=== PATIENT | male | born 2000 ===

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

== ENCOUNTER 2019-02-06 02:34 | Emergency (ER) | payer OTHER ==
--- NOTE | 2019-02-06 03:28 | ED ---
GI/ HPI - HPI Summary HPI Summary: This patient is a 18 year old male presenting to [facility] with a chief complaint of diarrhea. He states it came on suddenly and he was unable to make it to the bathroom in time. The patient states he felt like there was bile in the stool and that he has liver problems (masses in the liver) and is concerned about this. He was at urgent care earlier today with dizziness and nausea. He states he is not a diabetic but he had his glucose taken at urgent care and it was 35 g /dl. He states this was the only episode. - History of Current Complaint Chief Complaint: EDNauseaVomitDiarrh Time Seen by Provider: 02/06/19 03:21 Stated Complaint: DIARRHEA PER PT Hx Obtained From: Patient Onset/Duration: Started Hours Ago Pain Intensity: 0 - Allergy/Home Medications Allergies/Adverse Reactions: Allergies Allergy/AdvReac Type Severity Reaction Status Date / Time amoxicillin Allergy Unknown Verified 02/06/19 02:41 Reaction Details Penicillins Allergy Unknown Verified 02/06/19 02:41 Reaction Details Home Medications: Home Medications NK [No Home Medications Reported] 02/06/19 [History Confirmed 02/06/19] PMH/Surg Hx/FS Hx/Imm Hx Endocrine/Hematology History: Denies: Hx Diabetes Sensory History: Denies: Hx Legally Blind, Hx Deafness Opthamlomology History: Denies: Hx Legally Blind - Surgical History Surgery Procedure, Year, and Place: none reported Infectious Disease History: No Infectious Disease History: Denies: Traveled Outside the [place] in Last 30 Days - Family History Known Family History: Positive: Diabetes - Father, Other - stroke in grandmother - Social History Alcohol Use: None Substance Use Type: Reports: None Smoking Status (MU): Never Smoked Tobacco Review of Systems Positive: Diarrhea, Nausea Neurological: Other - Dizziness All Other Systems Reviewed And Are Negative: Yes Physical Exam - Summary Physical Exam Summary: Appearance: Well-appearing, Well-nourished, lying in bed comfortably Skin: Warm, dry, no obvious rash Eyes: sclera anicteric, no conjunctival pallor ENT: mucous membranes moist, pharynx appears normal Neck: Supple, nontender Respiratory: Clear to auscultation, no signs of respiratory distress Cardiovascular: Normal S1, S2. No murmurs. Normal distal pulses in tibial and radial bilaterally. Abdomen: Soft, nontender, normal active bowel sounds present Musculoskeletal: Normal, Strength/ROM Intact Neurological: A&Ox3, awake and alert, mentation is normal, speech is fluent and appropriate Psychiatric: affect is normal, does not appear anxious or depressed Triage Information Reviewed: Yes Vital Signs On Initial Exam: Initial Vitals Temp Pulse Resp BP Pulse Ox 98.6 F 104 20 149/93 98 02/06/19 02:35 02/06/19 02:35 02/06/19 02:35 02/06/19 02:35 02/06/19 02:35 Vital Signs Reviewed: Yes Procedures - Sedation Patient Received Moderate/Deep Sedation with Procedure: No Diagnostics - Vital Signs Vital Signs Temp Pulse Resp BP Pulse Ox 02/06/19 02:35 98.6 F 104 20 149/93 98 - Laboratory Result Diagrams: 02/06/19 03:55 02/06/19 03:50 Lab Statement: Any lab studies that have been ordered have been reviewed, and results considered in the medical decision making process. GIGU Course/Dx - Course Course Of Treatment: This patient is a 18 year old male presenting to [facility] with a chief complaint of diarrhea. Physical exam and labs were unremarkable. He has not experienced any further diarrhea while in the ED. A plan for discharge was discussed with the patient and he was agreeable with this plan. - Diagnoses Provider Diagnoses: Diarrhea Discharge ED - Sign-Out/Discharge Documenting (check all that apply): Patient Departure - Discharge Patient Received Moderate/Deep Sedation with Procedure: No - Discharge Plan Condition: Good Disposition: HOME Patient Education Materials: Acute Diarrhea (ED) Referrals: [facility] [Outside] - 2 Days (if needed) - Billing Disposition and Condition Condition: GOOD Disposition: Home - Attestation Statements Document Initiated by Sharynibe: Yes Documenting Scribe: Vladimir Hansen Provider For Whom Alejandro is Documenting (Include Credential): Wilberto Bailey MD Scribe Attestation: Vladimir Contreras scribed for Wilberto Bailey MD on 02/12/19 at 0414. Scribe Documentation Reviewed: Yes Provider Attestation: The documentation as recorded by the Vladimir ballard accurately reflects the service I personally performed and the decisions made by me, Wilberto Bailey MD Status of Scribe Document: Viewed
[2019-02-06] MEDS ORDERED: NS 0.9% 1000 ML** 2,000 ML IV ONE (03:30)
[2019-02-06 04:04] LABS: ABS Eosinophils 0.1 10^3/ul (0-0.6); ABS Lymphocytes 2.8 10^3/ul (1.0-4.8); ABS Monocytes 0.7 10^3/ul (0-0.8); ABS Neutrophils 4.7 10^3/ul (1.5-7.7); Eosinophil % 1.5 %; Hematocrit 44 % (42-52); Hemoglobin 15.1 g/dL (14.0-18.0); Mean Corpuscular HGB Conc 35 g/dL (31-36); Mean Corpuscular Hemoglobin 29 pg (27-31); Mean Corpuscular Volume 84 fL (80-94); Mean Platelet Volume 8.7 fL (7.4-10.4); Platelet Count 188 10^3/uL (150-450); Red Blood Count 5.22 10^6 /uL (4.18-5.48); Red Cell Distribution Width 14 % (10-15); White Blood Count 8.4 10^3/uL (3.5-10.8)
[2019-02-06 04:19] LABS: Albumin 4.5 g/dL (3.2-5.2); Albumin/Globulin Ratio 1.8 (1-3); BUN/Creatinine Ratio 15.8 (8-20); C Reactive Protein 2.15 mg/L (<8.01); Calcium 9.8 mg/dL (8.6-10.3); EGFR African American 159.9 (>60); EGFR Non-African American 132.1 (>60); Globulin 2.5 g/dL (2-4); Potassium 3.6 mmol/L (3.5-5.0); Total Bilirubin 0.4 mg/dL (0.2-1.0)
[2019-02-06 05:29] VITALS: BP 140/87
== END 2019-02-06 05:29 | disposition home or self-care (01) ==
LOC: ED 02:34
DX: R19.7 Diarrhea, unspecified (principal); Z88.1 Allergy status to other antibiotic agents; Z88.0 Allergy status to penicillin
CPT/HCPCS: 36415; 80053; 85025; 86140; 96360; 99282